=== PATIENT | female | born 1955 | race Hispanic/Latino ===

== ENCOUNTER 2017-05-17 15:01 | Emergency (ER) | payer BC, MEDICARE ==
[2017-05-17 15:13] VITALS: BP 112/52; PULSE 66; RESP 18; TEMP 97.3; O2SAT 99
--- NOTE | 2017-05-17 15:34 | ED PDOC ---
Lower Extremity Pain/Injury Time Seen by Provider: 05/17/17 15:11 Chief Complaint (Nursing): Lower Extremity Problem/Injury Chief Complaint (Provider): Left Knee Pain History Per: Patient History/Exam Limitations: no limitations Onset/Duration Of Symptoms: Days (x1 week) Current Symptoms Are (Timing): Still Present Additional Complaint(s): 61 y/o female with a pmhx of IBS, asthma, HTN, and hypercholesterolemia, who was brought in via EMS for evaluation of left leg injury. Patient states that 1 week ago she woke up with a tightness behind her left knee. States that the sensation has been progressively worsening. Says she told her personal service representative who advises her it may be a hamstring injury and he performed stretches with her for the past week with no improvement. Patient reports that while walking up the stairs today in her apartment complex, while carrying bags, her left knee gave out on her with sudden onset of pain. Patient reports she has not been taking medication for the pain, because its only painful when she bears weight. She denies calf pain, leg swelling, history of left knee injury, shortness of breath, chest pain, nausea, vomiting, and fever. PMD: Orlin Castanon Past Medical History Reviewed: Historical Data, Nursing Documentation, Vital Signs Vital Signs: Last Vital Signs Temp 97.3 F L 05/17/17 15:10 Pulse 66 05/17/17 15:10 Resp 18 05/17/17 15:10 BP 112/52 L 05/17/17 15:10 Pulse Ox 99 05/17/17 15:10 - Medical History PMH: Anxiety, Asthma, HTN, Hypercholesterolemia Denies: Chronic Kidney Disease - Surgical History Surgical History: No Surg Hx - Family History Family History: States: Unknown Family Hx - Social History Current smoker - smoking cessation education provided: No Alcohol: None Drugs: Denies - Home Medications Home Medications: Ambulatory Orders Medication Instructions Recorded Enalapril Maleate [Enalapril 1 tab PO DAILY 03/26/15 Maleate] Esomeprazole Magnesium [Nexium] 20 tab PO DAILY 03/26/15 Methylprednisolone [Medrol Dosepak] 4 mg PO ASDIR #1 pkg 03/26/15 Mometasone [Asmanex Twisthaler 110 1 puff INH BID 03/26/15 MCG] Potassium Chloride [Klor-Con 8] 1 tab PO BID 03/26/15 Simethicone [Gas-X] 1 tab PO QID 03/26/15 Simvastatin [Simvastatin] 1 tab PO DAILY 03/26/15 chlordiazePOXIDE-Clinidium [Librax 1 cap PO PRN PRN 03/26/15 5 MG-2.5 MG] hydroCHLOROthiazide [Hydrodiuril] 1 tab PO DAILY 03/26/15 Naproxen/Esomeprazole Mag [Vimovo 1 each PO BID #20 tab 05/17/17 Dr 500-20 mg Tablet] - Allergies Allergies/Adverse Reactions: Allergies Allergy/AdvReac Type Severity Reaction Status Date / Time ciprofloxacin [From Cipro] Allergy RASH Verified 03/26/15 18:19 ciprofloxacin HCl Allergy RASH Verified 03/26/15 18:19 [From Cipro] Penicillins Allergy RASH Verified 03/26/15 18:19 Review of Systems ROS Statement: Except As Marked, All Systems Reviewed And Found Negative Constitutional: Negative for: Fever Cardiovascular: Negative for: Chest Pain Respiratory: Negative for: Shortness of Breath Gastrointestinal: Negative for: Nausea, Vomiting Musculoskeletal: Positive for: Leg Pain Physical Exam - Reviewed Nursing Documentation Reviewed: Yes Vital Signs Reviewed: Yes - Physical Exam Comments: GENERAL APPEARANCE: Patient is awake, alert, oriented x 3, in no acute distress. SKIN: Warm, dry; (-) cyanosis. CHEST AND RESPIRATORY: (-) chest wall tenderness. Lungs: (-) rales, (-) rhonchi , (-) wheezes; breath sounds equal bilaterally. HEART AND CARDIOVASCULAR: (-) irregularity; (-) murmur, (-) gallop. ABDOMEN AND GI: Soft; (-) tenderness. LEFT KNEE: (-) reproducible tenderness, (+) decreased flexion secondary to pain , (-) effusion, (-) erythema. Negative anterior and posterior draw sign, no evidence of instability on valgus or varus stress. (-) calf tenderness, (-) pedal edema. Positive distal pulses, sensation intact throughout. - ECG O2 Sat by Pulse Oximetry: 99 (RA) Pulse Ox Interpretation: Normal Medical Decision Making Medical Decision Making: Time: 15:35 Initial Impression: Acute knee pain Plan: --Left knee X-Ray --Ultram 50mg PO (Patient will not be driving home) --Zofran 4mg PO --Reevaluation Time: 17:12 PROCEDURE: Left Knee Radiographs. HISTORY: Pain. No history of recent/ related trauma provided COMPARISON: None. FINDINGS: BONES: No acute fracture. Proliferative hypertrophic changes emanating from the femoral condyle and tibial plateau regions. JOINTS: Degenerative changes medial compartment and patellofemoral joint JOINT EFFUSION: None. OTHER FINDINGS: None. IMPRESSION: Normal radiographs of the left knee. --Ultrasound ordered to rule out DVT. Time: 1899 US Left Lower Extremity: HISTORY: Knee pain . PRIORS: None. FINDINGS: 2-D, color and duplex Doppler analysis of the lower extremity venous circulation using routine protocol from the femoral veins through the popliteal veins. Venous compressibility: Normal. Flow and augmentation patterns: Normal. Visualized veins upper third of calf: Normal. Moreland cyst: None. IMPRESSION: No sonographic or Doppler evidence for DVT in left lower extremity Time: 1944 On re-evaluation, patient reports improvement of symptoms, ambulatory in ED with steady gait. On exam, patient remains AAOx3, in no acute distress. Lungs clear to auscultation, cardiac RRR, abdomen soft, non-tender, repeat neuro exam shows no focal findings. VSS. Lab/Diagnostic results d/w the patient in great detail. Diagnosis of acute knee pain/sprain, DJD of knee d/w the patient. Based on history, exam and diagnostic results, plan will be for outpatient follow up. Patient instructed to follow-up with pmd / referral provided / the clinic in 1- 2 days without fail. Advised to take medication as prescribed. Return to the emergency room at any time for any new or worsening symptoms. Patient states she fully agrees with and understands discharge instructions. States that she agrees with the plan and disposition. Verbalized and repeated discharge instructions and plan. I have given the patient opportunity to ask any additional questions. Scribe Attestation: Documented by Rico Duffy, acting as a scribe for Rachel Irwin PA-C. Provider Scribe Attestation: All medical record entries made by the Scribe were at my direction and personally dictated by me. I have reviewed the chart and agree that the record accurately reflects my personal performance of the history, physical exam, medical decision making, and the department course for this patient. I have also personally directed, reviewed, and agree with the discharge instructions and disposition. Disposition - Clinical Impression Clinical Impression: Knee pain, acute, Knee sprain, Osteoarthritis of knee - Patient ED Disposition Is Patient to be Admitted: No Counseled Patient/Family Regarding: Studies Performed, Diagnosis, Need For Followup, Rx Given - Disposition Referrals: Edmundo Nichols III, MD [Staff Provider] - Disposition: Routine/Home Disposition Time: 19:44 Condition: STABLE Prescriptions: Naproxen/Esomeprazole Mag [Vimovo Dr 500-20 mg Tablet] 1 each PO BID #20 tab Instructions: Osteoarthritis, Knee Sprain (DC), Knee Pain Forms: [facility] (Palestinian) Print Language: LAO
--- NOTE | 2017-05-17 17:13 | RAD ---
PROCEDURE: Left Knee Radiographs. HISTORY: Pain. No history of recent/ related trauma provided COMPARISON: None. FINDINGS: BONES: No acute fracture. Proliferative hypertrophic changes emanating from the femoral condyle and tibial plateau regions. JOINTS: Degenerative changes medial compartment and patellofemoral joint JOINT EFFUSION: None. OTHER FINDINGS: None. IMPRESSION: Normal radiographs of the left knee.
--- NOTE | 2017-05-17 18:50 | US ---
HISTORY: Knee pain . PRIORS: None. FINDINGS: 2-D, color and duplex Doppler analysis of the lower extremity venous circulation using routine protocol from the femoral veins through the popliteal veins. Venous compressibility: Normal. Flow and augmentation patterns: Normal. Visualized veins upper third of calf: Normal. Moreland cyst: None. IMPRESSION: No sonographic or Doppler evidence for DVT in left lower extremity.
== END 2017-05-17 20:03 | disposition home or self-care (01) ==
LOC: H.ER 15:01
DX: M17.12 Unilateral primary osteoarthritis, left knee (principal); E78.00 Pure hypercholesterolemia, unspecified; I10 Essential (primary) hypertension; Z88.0 Allergy status to penicillin